=== PATIENT | female | born 1950 | race Caucasian/White ===

== ENCOUNTER 2017-07-01 14:48 | Observation (INO) ==
--- NOTE | 2017-07-01 15:17 | Emergency Department Note ---
Abdominal Pain HPI - General Source: patient, family Mode of arrival: ambulatory Limitations: no limitations <Basilia Degroot - Last Filed: 07/01/17 19:41> <Bolivar Sweet - Last Filed: 07/01/17 20:47> - General Chief Complaint: Abdominal Pain Stated Complaint: abdominal pain, nausea Time Seen by Provider: 07/01/17 14:59 - History of Present Illness HPI Narrative: 67-year-old female presents with family for increased swelling in bilateral lower extremities and shortness of breath. She also has abdominal pain. She is previously 3 weeks ago diagnosed with liver and lung cancer. She states in the last 2 days she has had significant swelling in her legs and shortness of breath that is requiring oxygen. She states she feels better with oxygen now. She is not on oxygen at home. She has nausea that is worse with eating but that has been for a while. She recently had a liver biopsy and is going to have treatment according to that. She is going to go home to the [facility] as soon as she can. She states her belly is very bloated as well as her legs. No fevers. She also has scleral icterus and mild jaundice of her face. Her sister -in-law noticed that on Thursday when she came to see her. No vomiting. She has had decrease in bowel movements. She is taking stool softeners. Last stool was Thursday. She is taking pain medication for pain. She had some Percocet today (Basilia Degroot) - Related Data Previous Rx's Medication Instructions Recorded Ondansetron [Zofran Odt] 8 mg PO Q6 PRN #20 tab.rapdis 07/01/17 morphine 10 mg SL Q2HP PRN #15 ml 07/01/17 Allergies Allergy/AdvReac Type Severity Reaction Status Date / Time No Known Drug Allergies Allergy Verified 06/26/17 13:52 Review of Systems All systems ED: reviewed and negative except as stated. <Basilia Degroot - Last Filed: 07/01/17 19:41> Abdominal Pain PMH - Past Medical History Medical history: Reports: other (small cell lung cancer, mets to liver). Denies : CHF Surgical history ED: Reports: other (lung and liver biopsy) Psychiatric history: Reports: no psych history [employer]IVERY [employer]IVER history: Reports: non-contributory Family history: Reports: no significant family history - Social History Smoking status: Former smoker <Basilia Degroot - Last Filed: 07/01/17 19:41> Physical Exam Limitations: no limitations General appearance: alert, in no apparent distress Head: atraumatic Eye: Present: scleral icterus Neck: Present: normal inspection, full ROM Chest: Present: normal inspection, symmetric chest wall rise Respiratory: Present: other (decreased in lower lobes) Cardiovascular: Present: regular rate, normal heart sounds Abdominal: Present: soft, distention, tenderness, hypoactive bowel sounds, other (bruising over right upper abdomen). Absent: guarding, rebound, rigidity Abdominal tenderness: Present: diffuse Extremities: Present: pedal edema (4 plus), pretibial edema Neurological: Present: alert, oriented X3 Psychiatric: Present: normal affect, normal mood Skin: Present: warm, dry, intact <DegrootBasilia - Last Filed: 07/01/17 19:41> Course <DegrootBasilia - Last Filed: 07/01/17 19:41> - Reevaluation(s) Time: 20:47 <Bolivar Sweet - Last Filed: 07/01/17 20:47> Course Narrative: She will be admitted for comfort care. Dr. Sweet took over the care of the patient (Basilia Degroot) - Reevaluation(s) Reevaluation #1: Extended time with the patient and family at the bedside. Goals of care discussion, prognostic indicators discussed. Findings suggest developing fulminant liver failure. who is a local physician reviewed the labs as well. Plan for respite stay overnight, medical transport to the airport for flight to [place] for end-of-life care. Prognosis days to weeks (Bolivar Sweet) Vital Signs Pulse Rate 100 H 07/01/17 14:50 Respiratory Rate 20 07/01/17 14:50 Blood Pressure 113/68 07/01/17 14:50 Pulse Oximetry (%) 93 07/01/17 14:50 Pulse Rate 82 07/01/17 19:39 Respiratory Rate 20 07/01/17 14:50 Blood Pressure 119/69 07/01/17 19:39 Pulse Oximetry (%) 93 07/01/17 19:39 Abdominal Pain - Lab Data Lab results reviewed: Yes I reviewed the patient's lab results. Result diagrams: 07/01/17 15:41 07/01/17 15:41 - Radiology Data Radiology results reviewed: Yes I reviewed the patient's radiology results. - EKG Data EKG attestation: Yes I reviewed and interpreted this EKG. <Basilia Degroot - Last Filed: 07/01/17 19:41> - Lab Data Result diagrams: 07/01/17 15:41 07/01/17 15:41 <Bolivar Sweet - Last Filed: 07/01/17 20:47> - Lab Data Lab Results 07/01/17 07/01/17 07/01/17 Range/Units 15:41 15:41 15:41 WBC 20.8 H (4.5-11.0) K/mcL RBC 4.86 (4.00-5.20) M/mcL Hgb 14.7 (12.0-15.0) g/dL Hct 43.8 (36.0-48.0) % MCV 90.1 (80.0-100.0) fL MCH 30.3 (26.0-34.0) pg MCHC 33.6 (31.0-36.0) g/dL RDW 16.4 H (11.5-14.5) % Plt Count 272 (140-440) K/mcL MPV 8.8 (7.4-10.4) fL Total Counted 100 Seg Neutrophils % 82 H (38-78) % Band Neutrophils % 2 (0-10) % Lymphocytes % 10 L (15-49) % Monocytes % (Manual) 5 (1-12) % Metamyelocytes % 1 H (0-0) % Platelet Estimate Normal (NORMAL) RBC Morphology Abnorm A (NORMAL) Anisocytosis 1+ A (NONE SEEN) PT 28.9 H (11.9-14.5) sec INR 2.6 H (0.9-1.1) VBG Lactic Acid (0.5-2.2) mmol/L Sodium 131 L (133-145) mmol/L Potassium 4.2 (3.3-5.1) mmol/L Chloride 93 L (96-108) mmol/L Carbon Dioxide 22 (22-30) mmol/L Anion Gap 16.0 (8-16) BUN 24 H (8-23) mg/dl Creatinine 0.8 (0.6-1.1) mg/dl GFR Calculation 76 Glucose 89 (70-105) mg/dL Calcium 8.9 (8.6-10.4) mg/dl Total Bilirubin 9.6 H (0.0-1.0) mg/dL AST 332 H (0-37) U/l ALT 125 H (0-40) U/l Alkaline Phosphatase 355 H (39-117) U/L NT-Pro-B Natriuret Pep 364.5 H (0-125) pg/ml Total Protein 5.7 L (5.9-8.4) gm/dL Albumin 2.7 L (3.2-5.2) gm/dL Globulin 3.0 (2.2-3.7) gm/dL Albumin/Globulin Ratio 0.9 L (1.0-2.3) 07/01/17 Range/Units 17:10 WBC (4.5-11.0) K/mcL RBC (4.00-5.20) M/mcL Hgb (12.0-15.0) g/dL Hct (36.0-48.0) % MCV (80.0-100.0) fL MCH (26.0-34.0) pg MCHC (31.0-36.0) g/dL RDW (11.5-14.5) % Plt Count (140-440) K/mcL MPV (7.4-10.4) fL Total Counted Seg Neutrophils % (38-78) % Band Neutrophils % (0-10) % Lymphocytes % (15-49) % Monocytes % (Manual) (1-12) % Metamyelocytes % (0-0) % Platelet Estimate (NORMAL) RBC Morphology (NORMAL) Anisocytosis (NONE SEEN) PT (11.9-14.5) sec INR (0.9-1.1) VBG Lactic Acid 2.0 (0.5-2.2) mmol/L Sodium (133-145) mmol/L Potassium (3.3-5.1) mmol/L Chloride (96-108) mmol/L Carbon Dioxide (22-30) mmol/L Anion Gap (8-16) BUN (8-23) mg/dl Creatinine (0.6-1.1) mg/dl GFR Calculation Glucose (70-105) mg/dL Calcium (8.6-10.4) mg/dl Total Bilirubin (0.0-1.0) mg/dL AST (0-37) U/l ALT (0-40) U/l Alkaline Phosphatase (39-117) U/L NT-Pro-B Natriuret Pep (0-125) pg/ml Total Protein (5.9-8.4) gm/dL Albumin (3.2-5.2) gm/dL Globulin (2.2-3.7) gm/dL Albumin/Globulin Ratio (1.0-2.3) - Radiology Data Stable tumor in the right upper lobe Moderate widespread pulmonary fibrosis. There may be superimposed active interstitial inflammation No ascites (Basilia Degroot) - EKG Data EKG results narrative: No ischemia (Basilia Degroot) Disposition Pt seen by APPLICATION DEVELOPMENT INTERN/PA only: No <Basilia Degroot - Last Filed: 07/01/17 19:41> <Bolivar Sweet - Last Filed: 07/01/17 20:47> Clinical Impression: Acute liver failure, Lung cancer Disposition: Xfer As Inpt ([facility]) Condition: Fair
--- NOTE | 2017-07-01 15:52 | XRay Report ---
HISTORY: Reason for Exam:shortness of breath FINDINGS: There is a poorly defined mass located above the right upper hilum in the right upper lobe. This is better seen on the CT done on 06/20/17. This has not changed significantly in size. There is underlying moderate interstitial pulmonary fibrosis. No acute infiltrate has developed since the recent chest CT. No pleural effusion is detected. The heart size is normal. IMPRESSION: Stable tumor in the right upper lobe Moderate widespread pulmonary fibrosis. There may be superimposed active interstitial inflammation Interpreted and Authenticated by: Davonte Mejia 07/01/17
[2017-07-01 16:23] LABS: Mean Cell Volume 90.1 fL (80.0-100.0); Mean Corpuscular HGB Conc 33.6 g/dL (31.0-36.0); Mean Corpuscular Hemoglobin 30.3 pg (26.0-34.0); Platelet Count 272 K/mcL (140-440); RBC 4.86 M/mcL (4.00-5.20); Red Cell Distribution Width 16.4 % (11.5-14.5)
--- NOTE | 2017-07-01 16:25 | Ultrasound Report ---
History: Metastatic lung cancer with liver metastasis, abdominal pain and nausea Findings: There is no ascites or evidence of hemorrhage around the liver. She had a liver biopsy last week. There are multiple liver metastasis throughout the liver. There is extrinsic compression of the inferior vena cava as it passes through the liver due to the metastasis. Impression: stable liver metastasis and no evidence of intra-abdominal hemorrhage or ascites Interpreted and Authenticated by: Davonte Mejia 07/01/17
[2017-07-01 16:45] LABS: proBNP 364.5 pg/ml (0-125)
[2017-07-01 16:56] LABS: Anisocytosis 1+ (NONE SEEN); Band Neutrophils % 2 % (0-10); Lymphocytes % 10 % (15-49); Metamyelocytes % 1 % (0-0); Monocytes % (Manual) 5 % (1-12); Platelet Estimate NORMAL (NORMAL); RBC Morphology ABNORM (NORMAL); Segmented Neutrophils % 82 % (38-78)
[2017-07-01] MEDS ORDERED: LORazepam 2 MG/ML VIAL IV ONE (16:56)
[2017-07-01] MEDS ORDERED: cefTRIAXone 2 GM VIAL IV ONE (16:56)
[2017-07-01] MEDS ORDERED: HYDROmorphone 2 MG/ML VIAL IV PRN (17:00)
[2017-07-01 17:08] LABS: ALT/SGPT 125 U/l (0-40); Albumin 2.7 gm/dL (3.2-5.2); Albumin/Globulin Ratio 0.9 (1.0-2.3); Alkaline Phosphatase 355 U/L (39-117); Blood Urea Nitrogen 24 mg/dl (8-23)
[2017-07-01] MEDS ORDERED: ONDANSETRON 4 MG/2 ML VIAL IV PRN (20:44)
[2017-07-01] MEDS ORDERED: ALBUTEROL SULFATE 2.5 MG/3 ML NEBULIZER NEB PRN (20:44)
[2017-07-01] MEDS ORDERED: IBUPROFEN 600 MG TABLET PO PRN (20:44)
[2017-07-01] MEDS ORDERED: SENNOSIDES 1 TABLET PO SCH (21:00)
[2017-07-01 21:26] LABS: Appearance,Urine TURBID; Color,Urine AMBER; Glucose,Urine (UA) NEGATIVE (NEG); Leukocyte Esterase,Urine NEG /uL (NEG); Protein,Urine 30 mg/dL (NEG); Specific Gravity,Urine 1.028 (1.000-1.035); Urine Blood NEG mg/dL (<0.03)
[2017-07-01 21:27] LABS: Ictotest,Urine POS (NEG)
[2017-07-01 21:44] LABS: Bacteria,Urine FEW /hpf (0); Mucus,Urine 2+ /hpf (0); Urine Amorphous Crystals MOD /hpf (0); Urine Cellular Cast 3 /lpf (0); Urine Hyaline Cast 28 /lpf (0-2); Urine RBC 2 /hpf (0-1); Urine Renal Epithelial Cells 2 /hpf (0-2); Urine Squamous Epithelial Cell 1 /hpf (0-4); Urine Transitional Epi Cells 2 /hpf (0-2); Urine WBC 10 /hpf (0-4)
[2017-07-01] MEDS: oxyCODONE HCL 5 MG TABLET PO PRN (21:52)
--- NOTE | 2017-07-01 21:54 | Internal Med History&Physical ---
Medical - H&P: HPI Patient information: Note initiated : 07/01/17 at 9:43 pm Service Date, if different from initiated Date: [] Patient: Lisa Ledesma a 67 y/o F admitted on 07/01/17 for abdominal pain, nausea. Chief Complaint: progressive weakness, jaundice History of present illness: Mrs. Ledesma is a 67 year old F with a history of idiopathic pulmonary fibrosis and recent diagnosis of small cell cancer. She was diagnosed with pulmonary fibrosis about 18 months ago, and has been on treatment with pirfenidone. She developed side effect of phototoxicity while on this medication. She also developed abnormal liver enzymes earlier this month. That led to imaging of the abdomen showing an abnormal liver with several masses. Imaging the chest showed a right upper lobe mass with adenopathy as well as other scattered nodules. CT-guided biopsy of the liver mass revealed small cell carcinoma. She's had progressive decline in function. A few days ago, family noticed that she was becoming jaundiced, with scleral icterus. Over the last 24 hour she's had an even more precipitous decline in functional status. He is also had worsening abdominal pain, worsening lower extremity edema and generalized weakness. Prior to today, the patient is used 1/2-1 tablet of 5/325 Percocet. She has not been using any other acetaminophen products. She has not drank alcohol. She is presents to the ED for further evaluation. She has evidence of hepatic failure with coagulopathy, INR 2.6, elevated bilirubin and other liver enzymes. She also has leukocytosis of over 20,000. No focal source of infection could be identified. Alzheimer the abdomen showed no ascites. Patient is complaining of pain in both her abdomen and chest, both the "front and back". Her legs are uncomfortable secondary to edema. She is thirsty and has been drinking water. She continues to produce urine. She is had no fever, chills, sore throat, headache. She does not feel particularly short of breath. Her appetite is decreased. She has also had some constipation from opioids, her last bowel movement was on Thursday. She was treated with pain medication the ED. Goals of care were discussed. Her prior goal had been to return to [place], where she has family. She was initially scheduled to be on a flight a week from today. Given her precipitous decline, the family has arranged for her to travel with her , Dr. phillips and other family to [place] tomorrow. Patient is being hospitalized for any further symptom control prior to her trip to [place]. Had a long discussion with the patient as well as her , who is a local physician. I provided prescription for morphine elixir as well as Zofran for any comfort measures that she may need en route prior to being established with a local oncologist. The overall plan is to establish care of oncologist, though this likely will be a long the line to palliative care as her performance status likely precludes any chemotherapy. Her prognosis is very guarded. 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 Another brother of pulmonary illness. Social history: The patient is , her is long-established curator in the area. She stopped smoking several years ago. She has not drank alcohol in the last couple of years. Medical - H&P: Meds Home Medications Medication Instructions Recorded Confirmed Type Ondansetron [Zofran Odt] 8 mg PO Q6 PRN #20 tab.rapdis 07/01/17 Rx morphine 10 mg SL Q2HP PRN #15 ml 07/01/17 Rx Allergies Allergy/AdvReac Type Severity Reaction Status Date / Time No Known Drug Allergies Allergy Verified 06/26/17 13:52 Medical - H&P: Exam - Constitutional Vitals: Temp Pulse Resp BP Pulse Ox 97.1 F 87 24 H 128/82 94 07/01/17 20:40 07/01/17 20:40 07/01/17 20:40 07/01/17 20:40 07/01/17 20:40 Exam: General: Ill-appearing HEENT: Normocephalic. Pupils are equally round and reactive to light. Scleral icterus is present. No conjunctival injection. Oropharynx is with tacky mucous membranes, no lip or gum lesions. Tongue is midline. Neck: Supple, no meningismus. No thyromegaly. Chest: Few basal rales, respirations unlabored . Cardiovascular: Regular rate and rhythm without murmur gallop or rub. There is 3+ lower extremity edema. Abdomen: Soft, distended, non-tympanic, mild to moderate diffuse tenderness without guarding or rebound. Bowel sounds are decreased. Liver margin cannot be palpated, though exam is a bit limited by body habitus. Skin: Warm, jaundice present, scattered ecchymoses. Decreased skin turgor. Musculoskeletal: No joint erythema or tenderness. Strength 4/5 in upper and lower extremities, with generalized weakness. Digits without cyanosis or clubbing. Neuro: Alert, oriented X3. Cranial nerves II through XII grossly intact. Sensation intact to light touch. No asterixis. Medical - H&P: Reslt - Labs CBC & Chem 7: 07/01/17 15:41 07/01/17 15:41 Labs: Short CBC 07/01/17 Range/Units 15:41 WBC 20.8 H (4.5-11.0) K/mcL Hgb 14.7 (12.0-15.0) g/dL Hct 43.8 (36.0-48.0) % Plt Count 272 (140-440) K/mcL BMP 07/01/17 15:41 Sodium 131 L Potassium 4.2 Chloride 93 L Carbon Dioxide 22 BUN 24 H Creatinine 0.8 Glucose 89 Calcium 8.9 Liver Function 07/01/17 Range/Units 15:41 Total Bilirubin 9.6 H (0.0-1.0) mg/dL AST 332 H (0-37) U/l ALT 125 H (0-40) U/l Alkaline Phosphatase 355 H (39-117) U/L Albumin 2.7 L (3.2-5.2) gm/dL Urine 07/01/17 Range/Units 20:29 Urine Color Annette Urine Appearance Turbid Urine pH 5.0 (5.0-9.0) Ur Specific Beth[place] 1.028 (1.000-1.035) Urine Protein 30 A (NEG) mg/dL Urine Glucose (UA) Negative (NEG) mg/dL - Imaging and Cardiology Chest x-ray Status: image reviewed by me Additional comments: IMPRESSION: Stable tumor in the right upper lobe Moderate widespread pulmonary fibrosis. There may be superimposed active interstitial inflammation US - abdomen Additional comments: No ascites Medical - H&P: A/P (1) Small cell carcinoma Current visit: Yes Status: Acute (2) Acute liver failure Current visit: Yes Status: Acute (3) Chronic respiratory failure with hypoxia Current visit: Yes Status: Acute - Narrative A/P Narrative: 67-year-old female with recently diagnosed small cell carcinoma involving lung and liver, presents with fairly abrupt declining functional status. Evidence of hepatic failure, also with chronic hypoxic respiratory failure from underlying IPF. Small cell carcinoma with liver metastases and acute liver failure. Prognosis is guarded. Goals of care discussed extensively, her goal is to return to [place] to be with family during her final stages of the disease. Given progressive clinical decline, the patient is being hospitalized in observation to assure that she will be stable for flight to [place] tomorrow. Plan: Observation hospitalization Supplemental oxygen as needed Senna for bowel care Prescriptions for morphine elixir for pain control and Zofran for nausea control during flight been given POLST form filled out, indicating DO NOT RESUSCITATE, limited additional interventions, trial of antibiotics. Form given to family to travel with her Lopez catheter for patient comfort, we will discharge her on that in the morning If clinically declines overnight, will likely pursue a palliative course If remains stable, will allow discharge with the above preparations and comfort meds for travel to [place]. Leukocytosis. No immediate focus of infection noted. Urine analysis negative for leukocyte esterase and for nitrite. The patient did receive 2 g of ceftriaxone in the emergency department. Plan: The patient remains clinically stable, we'll not provide further antibiotics. If decompensates or develops fever, will culture and pursue further evaluation. Pain secondary to liver metastases and likely pleural and her Carl components. Plan: Morphine intravenously, oxycodone orally. Prescription for morphine elixir given and filled by family. Overall the patient's prognosis is guarded. If she remains clinically stable, we'll travel tomorrow to be with family end-of-life. Likely days to a few weeks remaining. CODE STATUS: DO NOT RESUSCITATE. Prophylaxis: The patient is at risk for DVT, however pharmacologic prophylaxis is not given due to coagulopathy, SCDs not used due to edema and leg pain, and overall the patient's focus of care is palliative.
[2017-07-01] MEDS ORDERED: 0.9 % SODIUM CHLORIDE 10 ML SYRINGE IV SCH (22:00)
[2017-07-02] MEDS: oxyCODONE HCL 5 MG TABLET PO PRN (03:01)
--- NOTE | 2017-07-02 19:24 | Discharge Summary ---
Medical - DS: Prov Patient information: Note initiated : 07/02/17 at 7:22 pm Service Date, if different from initiated Date: [] Patient: Lisa Ledesma 67 y/o F admitted on 07/01/17 for Abd Pain, Nausea/Liver Failure, Resp Failure. Date of admission: 07/01/17 20:40 Discharge date: 07/02/17 Primary care physician: Mildred Guerrero Admitting clinician: Samra Villa Consults: 07/01/17 18:33 Consult to Physician [CONS] Stat Comment: Consulting Provider: Samra Villa Reason For Exam: Physician to Consult Discharging clinician: Samra Villa Medical - DS: Meds - Discharge Medications Prescriptions: morphine 10 mg SL Q2HP PRN #15 ml PRN Reason: Pain Ondansetron [Zofran Odt] 8 mg PO Q6 PRN #20 tab.rapdis PRN Reason: Nausea Active and Home Medications: Home Medications Ondansetron [Zofran Odt] 8 mg PO Q6 PRN #20 tab.rapdis 07/01/17 [Rx Last Taken Unknown] morphine 10 mg SL Q2HP PRN #15 ml 07/01/17 [Rx Last Taken Unknown] Medical - DS: Hosp Hospital course: Mr. Ledesma is a 67 year old F with recently diagnosed metastatic small cell carcinoma with metastases in the liver. She presented with progressive decline in function and a fairly precipitous manner. For full details please see my history and physical. The patient's overnight stay was uneventful. Her status remained serious but stable. She was discharged early in the morning, where family took her to the airport for transport to [place] to be with her remaining family for end-of- life care. Patient was provided with morphine elixir, Zofran for comfort needs if needed while traveling as well as a physician's order for life sustaining treatment indicating DO NOT RESUSCITATE with Limited additional interventions. Discharge diagnosis: Acute hepatic failure, metastatic small cell carcinoma Medical - DS: Exam - Constitutional Vitals: Vital Signs Temp Pulse Pulse Resp BP Pulse Ox 07/02/17 03:36 97.2 F 64 16 112/72 92 07/01/17 20:40 97.1 F 87 24 H 128/82 94 07/01/17 19:39 82 119/69 93 Intake and Output 07/02/17 07/02/17 07/02/17 05:59 13:59 21:59 Intake Total 360 / 360 Output Total 125 / 125 Balance 235 / 235 Intake: Oral 360 / 360 Output: Urine Catheter Amount 125 / 125 Additional comments: Unchanged from admission Medical - DS: Data Labs on day of discharge: Labs from last 24 hours 07/01/17 20:29 Urine Color Annette Urine Appearance Turbid Urine pH 5.0 Ur Specific [place] 1.028 Urine Protein 30 A Urine Glucose (UA) Negative Urine Ketones Neg Urine Occult Blood Neg Urine Nitrate Neg Urine Bilirubin 4.0 A Urine Ictotest Pos A Urine Urobilinogen 4.0 A Ur Leukocyte Esterase Neg Urine RBC 2 H Urine WBC 10 H Ur Squamous Epith Cells 1 Ur Transition Epith Cell 2 Ur Renal Epithelial Cell 2 Amorphous Crystals Mod A Urine Bacteria Few A Cellular Casts 3 H Hyaline Casts 28 H Urine Mucus 2+ Ur Culture Indicated? Yes Preliminary micro results at discharge 07/01/17 16:58 Blood Culture - Preliminary Blood 07/01/17 17:10 Blood Culture - Preliminary Blood 07/01/17 20:39 Urine Culture - Preliminary Urine - Clean Void [facility] Medical - DS: A/P - Patient/Caregiver Discharge Instructions Activity: increase activity as tolerated Diet: Regular Diet Additional Instructions: Follow-up with Oncologist upon arrival in [place]. Prescriptions: morphine 10 mg SL Q2HP PRN #15 ml PRN Reason: Pain Ondansetron [Zofran Odt] 8 mg PO Q6 PRN #20 tab.rapdis PRN Reason: Nausea - Problem Maintenance (1) Small cell carcinoma Status: Acute (2) Acute liver failure Status: Acute (3) Chronic respiratory failure with hypoxia Status: Acute - Follow up Plan Disposition: Home, Self-Care Prognosis: Critical Rehab Potential: Critical Overall status at discharge: patient is not back to baseline
== END 2017-07-02 03:25 | disposition home or self-care (01) ==
LOC: ED 14:48 → ICU 14:48
PROVIDERS: ADMIT Internal Medicine; ATTEND Internal Medicine